=== PATIENT | male | born 1950 | race Caucasian/White ===

== ENCOUNTER 2020-11-02 12:04 | Outpatient (CLI) | payer MEDICARE, OTHER, SELFPAY ==
--- NOTE | ~2020-11-02 | XR_ITS ---
XR shoulder LT min 2V DATE: 11/02/2020 12:49 INDICATION: Left shoulder pain since dislocation 2 years ago TECHNIQUE: 3 views COMPARISON: 09/20/2018 left shoulder FINDINGS: There is a prominent Hill-Sachs deformity of the left humeral head secondary to prior dislo cation. Diffuse osteopenia. There is evidence of rotator cuff atrophy. No recent fracture or dislocation is detected. No periosteal reaction or bone destruction. Mild degenerative spurring at the acromioclavicular joint. 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 Osteopenia Reviewed, dictated and finalized at location B. 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 Osteopenia
[2020-11-02 12:39] LABS: Basophils Absolute Auto 0.09 K/mm3 (0.00-0.10); Basophils Percent Auto 0.7 % (0.0-1.0); Eosinophils Absolute Auto 0.26 K/mm3 (0.02-0.50); Hematocrit 42.8 % (37.0-46.0); Hemoglobin 13.7 g/dL (12.4-15.3); Immature Granulocyte Absolute 0.04 K/mm3 (0.00-0.00); Immature Granulocyte Percent A 0.3 % (0.0-0.0); Lymphocytes Absolute Auto 1.77 K/mm3 (1.10-4.50); Lymphocytes Percent Auto 13.7 % (18.0-42.0); Mean Corpuscular Hemoglobin 28.2 pg (27.0-31.0); Mean Corpuscular Volume 88.1 fL (78.0-102.0); Mean Platelet Volume 9.8 fl (8.7-11.0); Monocytes Absolute Auto 0.55 K/mm3 (0.10-0.90); Monocytes Percent Auto 4.3 % (2.0-11.0); Neutrophils Absolute Auto 10.2 K/mm3 (1.7-7.2); Platelet Count Result 330 K/mm3 (150-420); Red Blood Count 4.86 M/mm3 (4.70-6.10); Red Cell Distribution Width 13.9 % (11.6-14.4); White Blood Count 12.9 K/mm3 (4.8-10.8)
[2020-11-02 13:02] LABS: Hemoglobin A1C 6.8 % (<5.7)
[2020-11-02 13:18] LABS: Alanine Aminotransferase 17 U/L (16-63); Albumin Level 3.5 g/dL (3.4-5.0); Alkaline Phosphatase 108 U/L (46-116); Anion Gap 8 mmol/L (8-16); Aspartate Amino Transferase < 10 U/L (15-37); Bilirubin,Total 0.3 mg/dL (0.00-1.00); Blood Urea Nitrogen 18 mg/dL (7-18); Calcium 9.3 mg/dL (8.5-10.1); Carbon Dioxide 28 mmol/L (21-32); Chloride 103 mmol/L (98-108); Estimated Glomerular Filt Rate > 60; Glucose 155 mg/dL (70-99); Osmolality Calculated 292 mOsm/kg (285-295); Potassium 4.4 mmol/L (3.5-5.1); Sodium 139 mmol/L (136-145); Thyroid Stimulating Hormone 1.33 uIU/mL (0.36-3.74); Total Protein 7.7 g/dL (6.4-8.2)
[2020-11-09 13:09] LABS: Vitamin D 25 Hydroxy 10 ng/mL (30-100)
== END 2020-11-02 12:05 | disposition home or self-care (01) ==
LOC: CHSLAB 12:09
PROVIDERS: PCP Family Medicine; Visit Provider Family Medicine
DX: E11.9 Type 2 diabetes mellitus without complications (principal); E55.9 Vitamin D deficiency, unspecified; M25.512 Pain in left shoulder
CPT/HCPCS: 36415; 73030; 80053; 82306; 83036; 84443; 85025

== ENCOUNTER → 2021-06-13 03:58 | Outpatient (CLI) | payer MEDICARE, OTHER, SELFPAY ==
[2021-06-13 18:30] LABS: SARS-CoV-2 RNA PCR Negative
== END ==
PROVIDERS: PCP Family Medicine; Visit Provider Surgery
DX: Z01.812 Encounter for preprocedural laboratory examination (principal); Z20.822 Contact with and (suspected) exposure to COVID-19
CPT/HCPCS: C9803; U0003; U0005

== ENCOUNTER → 2021-06-18 02:49 | Outpatient (CLI) | payer MEDICARE, OTHER, SELFPAY ==
[2021-06-19 01:36] LABS: SARS-CoV-2 RNA PCR Negative
== END ==
PROVIDERS: PCP Family Medicine; Visit Provider Surgery
DX: Z01.812 Encounter for preprocedural laboratory examination (principal); Z20.822 Contact with and (suspected) exposure to COVID-19
CPT/HCPCS: C9803; U0003; U0005

== ENCOUNTER 2021-06-22 01:53 | Day surgery (SDC) | payer MEDICARE, OTHER, SELFPAY ==
[2021-06-08 13:14] VITALS: BMI 40.6
--- NOTE | 2021-06-16 09:36 | PC.NURSE ---
STATES NO CHANGE IN HEALTH HX SINCE LAST INTERVIEW ON 06/08/21
--- NOTE | 2021-06-21 13:33 | P.PNAN_ITS ---
Anes - Initial Pre Proc Eval Procedure: Operation Date: 06/22/21 13:30 Proposed Procedures p Excisional Biopsy Multiple Cutaneous Horns, Wide Local Excision Right Upper Extremities Skin Lesion Times Two - Dai Sarmiento MD s Pilonidal Cystectomy - Dai Sarmiento MD Date/Time: 06/21/21 13:33 Surgeon: Dai Sarmiento MD Pre Op Diagnosis: skin lesions rue, cutaneous horn, pilonidal cyst Patient Data Age: 71 Gender: M Height: 1.83 m Weight: 136.1 kg Allergies Allergy/AdvReac Type Severity Reaction Status Date / Time No Known Allergies Allergy Unverified 06/22/21 11:57 Home Medications Medication Instructions Recorded Confirmed Type albuterol sulfate 90 mcg/actuation 1 inh INHALATION Q4H PRN 05/30/21 06/22/21 History breath activated powder inhaler,sensor amlodipine 5 mg tablet 5 mg PO QPM 05/30/21 06/22/21 History aspirin 81 mg tablet,delayed 81 mg PO QPM 05/30/21 06/22/21 History release glipizide 5 mg tablet 5 mg PO BID 05/30/21 06/22/21 History losartan 50 mg-hydrochlorothiazide 1 tablet PO DAILY 05/30/21 06/22/21 History 12.5 mg tablet metformin 500 mg tablet 1,000 mg PO BID 05/30/21 06/22/21 History omeprazole magnesium 20 mg 20 mg PO DAILY 05/30/21 06/22/21 History tablet,delayed release vitamin A-vitamin C-vit E-min 1 tablet PO DAILY 06/08/21 06/22/21 History [Ocuvite] Patient hx anesthesia problems: none Family hx anesthesia problems: none [facility] Past Medical History Medical History (Updated 05/30/21 @ 15:38 by Shahnaz Dickerson) COPD (chronic obstructive pulmonary disease) Diabetes type 2, uncontrolled GERD (gastroesophageal reflux disease) High cholesterol History of coma HTN (hypertension) Hx of skin malignancy KSENIA (obstructive sleep apnea) Pilonidal cyst Surgical History Surgical History (Updated 05/30/21 @ 14:03 by Kylah Smith) History of esophagogastroduodenoscopy (EGD) Hx of aortic aneurysm repair Family History Family History (Updated 05/30/21 @ 14:05 by Kylah Smith) Father COPD (chronic obstructive pulmonary disease) Hyperlipidemia Acute myocardial infarction Mother Hyperlipidemia Sibling Diabetes mellitus Sibling COPD (chronic obstructive pulmonary disease) Hyperlipidemia Social History Social History (Updated 05/30/21 @ 14:05 by Kylah Smith) Smoking packs per day: 1 Smoking cigarettes per day: 20.0 Years smoked: 60 Smoking pack-years: 60.00 Smoking status: Current every day smoker Tobacco type: cigarettes Living arrangements: alone Spiritual care concerns: No Anes - Eval Final PreProcedure Day of Procedure 06/21/21 13:33 Patient weight: morbidly obese Heart: regular rate and rhythm Lungs: clear to auscultation and normal air movement Airway: Mallampati scale class III Neurological: alert and oriented Last oral intake: >/= 8 hours ASA classification: III Emergent: no Anesthetic plan: proceed Anesthesia type and monitoring: general ETT and standard monitoring Informed Consent: The patient's anesthetic plan and its attendant risks and benefits were discussed with the patient/family/POA. Questions were solicited and answers provided to the satisfaction of the patient/family/POA.
--- NOTE | 2021-06-22 10:56 | ECG_ITS ---
Measurements Intervals [place] Rate: 93 P: [place]: 0 QRS: -59 QRSD: 139 T: 76 QT: 374 QTc: 466 Interpretive Statements SINUS OR ECTOPIC ATRIAL RHYTHM ATRIAL PREMATURE COMPLEX LEFT AXIS DEVIATION RIGHT BUNDLE BRANCH BLOCK ABNORMAL ECG Electronically Signed On 06-22-2021 12:59:18 CDT by Ronan Funez D.O.
[2021-06-22 11:25] VITALS: BP 154/71; PULSE 89; RESP 14; TEMP 37.1; O2SAT 94
--- NOTE | 2021-06-22 11:50 | WPDHPUPDATE1 ---
History and Physical Update Update Date/Time: 06/22/21 11:50 History and Physical has been reviewed, including an updated exam of the patient. There are NO changes in the patient's condition. Risks, benefits, and alternatives have been discussed and questions answered. Patient agrees to proceed with procedure.
[2021-06-22] MEDS: LACTATED RINGERS 1,000 ML 30 ML IV CONT (12:20)
[2021-06-22 12:30] LABS: Glucose Point of Care 139 mg/dl (65-105)
[2021-06-22] MEDS: ceFAZolin 3 GM/D5W 100 ML 100 ML IVPB (13:39)
[2021-06-22 13:45] LABS: Anion Gap 7 mmol/L (8-16); Blood Urea Nitrogen 19 mg/dL (9-20); Calcium 8.9 mg/dL (8.4-10.2); Carbon Dioxide 29 mmol/L (22-30); Chloride 101 mmol/L (98-107); Estimated CRCL calculation 89 ml/min; Estimated Glomerular Filt Rate > 60; Glucose 144 mg/dL (65-110); Sodium 137 mmol/L (137-145)
[2021-06-22] MEDS: BUPIVACAINE/EPINEPHRINE 0.5% 30 ML VIAL INFILTRATE (14:30)
--- NOTE | 2021-06-22 14:34 | W.PM.PROC2 ---
Procedure Note - Detailed Date of Procedure 06/22/21 Pre-op Diagnosis skin lesions rue, cutaneous horn x 4, infected pilonidal cyst Post-op Diagnosis same Procedure Performed wide local excision RUE skin lesion, exc bx cutaneous horn x 4 (2 on each extremity), complex incision and drainage infected pilonidal cyst Surgeon Dai Sarmineto MD Anesthesia MAC and local Indications 71 y/o M presenting c RUE skin lesion x 1 yr. Pt reports lesion larger and darker c occ bleeding. Pt c h/o skin cancers. Pt also c cutaneous horn x 4, 2 on each extremity. Pt also c/o drainage, pain at area of pilonidal cyst. Findings infected pilonidal cyst Description of Procedure The patient was taken operating room placed in the lateral position. After adequate induction of MAC anesthesia, the patient was prepped and draped normal sterile fashion. A time-out was then done to verify the patient's identity, as well as the procedure being performed. I began by addressing the skin lesion in the right upper arm. There was 2 darkened areas that were irregular in shape and seemed to connect in the middle. I did a wide local excision after localizing the area. This was done by making elliptical incision to encompass the entire lesion. Once was completely around the lesion, I excised the dermis from the underlying subcutaneous tissue. This will now be sent to pathology for further review. The wide local excision measured 3-1/2 by 1-1/2 cm. I then gained hemostasis with the Bovie cautery. I then closed this excision with interrupted 3 0 nylon sutures in a vertical mattress fashion. Sterile dressing was then placed. I then excised the cutaneous horns by using a scalpel and excising these horns at the base. They were all sent to pathology for further review and there were 2 on each extremity. Once excised, I gained hemostasis with the Bovie cautery. Sterile dressing was then placed. Finally, there was noted to be a infected pilonidal cyst. The abscess was noted to be superior to the pilonidal tract. I used a scalpel to open up the abscess and a small amount of pus was noted. Bluntly dissecting to the base with a hemostat, I encountered some hair and this was removed. I then opened the pilonidal tract to connect with the abscess. I then washed out the wound. This area was then packed with quarter-inch iodoform. Sterile dressing was then placed. The patient tolerated these procedures well lb sent to the recovery room in stable condition.
[2021-06-22 14:46] VITALS: BP 140/69; PULSE 100; RESP 18; O2SAT 91
[2021-06-22 15:00] VITALS: BP 153/69; PULSE 103; O2SAT 88
[2021-06-22 15:00] LABS: Glucose Point of Care 154 mg/dl (65-105)
[2021-06-22 15:30] VITALS: BP 148/73; PULSE 94; O2SAT 91
[2021-06-22 16:00] VITALS: BP 134/62; PULSE 101
[2021-06-22 16:15] VITALS: BP 120/63; PULSE 102
--- NOTE | 2021-06-22 17:28 | SUR.PHASEII ---
Patient was argumentative and wouldn't follow any directions given by RN. When RN checked in patient with anesthesia after the procedure in outpatient, patient was sating 89% on RA. RN applied 2-3L NC. Patient sats came up 94%. Patient was noncompliant with using the incentive spirometer suggested by Dr. Collier and outpatient RN. Patient then wouldn't keep on the NC and his O2 kept dropping to 88% RA. Patient stated, I live 85-88%. This is normal for me. RN referred patient to primary doctor for further evaluation. Patient dropped to 87% RA. Dr. Collier aware especially on noncompliance. Patient stated, I will sign out AMA if I have to. I'm going home. Sister made aware of noncompliance and is a RN herself and assured RN this is his normal behavior. Anesthesia was made aware that patient was going home regardless of treatment.
--- NOTE | 2021-06-22 18:15 | SUR.PHASEII ---
RN spoke to patient's sister, Shirley, 3 times while patient was is in outpatient surgery.
== END 2021-06-22 16:34 | disposition home or self-care (01) ==
PROVIDERS: Anesthesiology; PCP Family Medicine; Visit Provider Surgery
PROC: (CPT 10081; principal; 2021-06-22 13:30)
PROC: (CPT 10081; 2021-06-22 13:30)
DX: D03.61 Melanoma in situ of right upper limb, including shoulder (principal); L57.0 Actinic keratosis; L05.01 Pilonidal cyst with abscess; L85.8 Other specified epidermal thickening; I10 Essential (primary) hypertension; E11.9 Type 2 diabetes mellitus without complications; K21.9 Gastro-esophageal reflux disease without esophagitis; Z85.828 Personal history of other malignant neoplasm of skin
CPT/HCPCS: 10081; 11604; 11401 ×2; 36415; 80048; 82948; 88305; 88342; 93005; A9270; J0690; J2250; J2405; J2704; J3010; J7120

== ENCOUNTER 2021-10-27 11:29 | Emergency (ER) | payer MEDICARE, OTHER, SELFPAY ==
[2021-10-27] VITALS (13 sets, daily range): BP systolic 92–133; BP diastolic 51–86; PULSE 126–128; RESP 20–24; TEMP 36.4–36.7; O2SAT 89–98
--- NOTE | ~2021-10-27 | CT_ITS ---
EXAMINATION: CT diagnostic chest wo con EXAM DATE: 10/27/2021 13:12 INDICATION: Hypoxia, SOB. TECHNIQUE: Spiral CT of the chest without contrast. Axial, coronal and sagittal images of the chest were reviewed. Coronal maximum intensity pixel images of chest reviewed. The dose-length product ( DLP) for this examination was 748.05 mGy-cm. The exposure was tailored according to patient size (au to mA exposure control), and iterative reconstruction (ASIR) was used as additional dose reduction [place]. There is no prior study for comparison. FINDINGS: There is cardiomegaly. Small to moderate right, small left pleural effusions. There is mode rate amount of right lung ill-defined airspace disease, small amount of left lower lobe ill-defined a irspace disease, probably acute pneumonia or less likely edema given the asymmetry. There is right lo wer lobe segmental amount of atelectasis. Small pericardial effusion. Mild to moderate coronary arter y calcifications. Ill-defined left upper lobe spiculation, difficult to measure but could be up to 8-10 mm; 3 month fol low-up chest CT recommended for this indeterminate finding. There is mediastinal lymphadenopathy, a p recarinal lymph node measuring 1.6 x 2.0 cm. Probably reactive. No pneumothorax. Exophytic left renal 3.5 cm lesion consistent with cyst. Old left rib fractures. IMPRESSION: 1. Moderate right-sided, small left lower lobe airspace disease. Pneumonia or less likely edema. Cli nical correlation. 2. Indeterminate left upper lobe spiculated opacity; 3 month follow-up chest CT without contrast. 3. Cardiomegaly, small to moderate right, small left pleural effusions. Small pericardial effusion. 4. Lymphadenopathy probably reactive. Reviewed, dictated and finalized at location A. COAT WIPER IMPRESSION: 1. Moderate right-sided, small left lower lobe airspace disease. Pneumonia or less likely edema. Clinical correlation. 2. Indeterminate left upper lobe spiculated opacity; 3 month follow-up chest C T without contrast. 3. Cardiomegaly, small to moderate right, small left pleural effusions. Small pericardial effusion. 4. Lymphadenopathy probably reactive.
--- NOTE | 2021-10-27 11:51 | ECG_ITS ---
Measurements Intervals [place] Rate: 128 P: 264 MN: 162 QRS: -62 QRSD: 121 T: 154 QT: 213 QTc: 311 Interpretive Statements ATRIAL FLUTTER/TACHYCARDIA WITH RAPID VENTRICULAR RESPONSE LEFT AXIS DEVIATION INTRAVENTRICULAR CONDUCTION DELAY ST-T WAVE ABNORMALITY IN ANTEROLAT/HIGH LAT LEADS- CONSIDER ISCHEMIA BASELINE ARTIFACT- I, II, AVR, V1, V4 ABNORMAL ECG Electronically Signed On 10-27-2021 12:39:25 [employer] by Ronan Funez D.O.
[2021-10-27] MEDS: FUROSEMIDE INJ 100 MG/10 ML VIAL 80 MG IV PUSH (12:16)
[2021-10-27 12:37] LABS: Basophils Absolute Auto 0.08 K/mm3 (0.00-0.10); Basophils Percent Auto 0.7 % (0.0-1.0); Eosinophils Absolute Auto 0.22 K/mm3 (0.02-0.50); Eosinophils Percent Auto 1.9 % (1.0-6.0); Hematocrit 42.4 % (37.0-46.0); Hemoglobin 12.3 g/dL (12.4-15.3); Immature Granulocyte Absolute 0.09 K/mm3 (0.00-0.00); Immature Granulocyte Percent A 0.8 % (0.0-0.0); Lymphocytes Percent Auto 14.5 % (18.0-42.0); Mean Corpuscular Hemoglobin 27.6 pg (27.0-31.0); Mean Corpuscular Volume 95.3 fL (78.0-102.0); Mean Platelet Volume 9.1 fl (8.7-11.0); Monocytes Absolute Auto 0.61 K/mm3 (0.10-0.90); Monocytes Percent Auto 5.2 % (2.0-11.0); Neutrophils Percent Auto 76.9 % (50.0-70.0); Platelet Count Result 434 K/mm3 (150-420); Red Blood Count 4.45 M/mm3 (4.70-6.10); Red Cell Distribution Width 15.8 % (11.6-14.4); White Blood Count 11.7 K/mm3 (4.8-10.8)
--- NOTE | 2021-10-27 12:41 | PC.NURSE ---
patient refused his covid test it is against my constitutional rights and blood gas. patient also took out the battery to his life vest and disconnected machine. erp is made aware of patient decisions.
[2021-10-27 12:55] LABS: Alanine Aminotransferase 40 U/L (16-63); Alkaline Phosphatase 146 U/L (46-116); Anion Gap 8 mmol/L (8-16); Aspartate Amino Transferase 15 U/L (15-37); Bilirubin,Total 0.3 mg/dL (0.00-1.00); Blood Urea Nitrogen 29 mg/dL (7-18); Calcium 8.7 mg/dL (8.5-10.1); Carbon Dioxide 29 mmol/L (21-32); Chloride 110 mmol/L (98-108); Estimated Glomerular Filt Rate 58; Glucose 161 mg/dL (70-99); Osmolality Calculated 312 mOsm/kg (285-295); Potassium 4.3 mmol/L (3.5-5.1); Sodium 147 mmol/L (136-145); Total Protein 7.2 g/dL (6.4-8.2)
[2021-10-27 13:03] LABS: Troponin I 242.2 ng/L (0.00-60.4)
[2021-10-27 13:49] LABS: Base Excess ABG -4.9 mmol/L (0-2); HCO3 ABG 23.4 mmol/L (23-29); Oxygen Content ABG 17.7 %vol (16.0-22.0); Oxygen Saturation ABG 95.5 % (95-97); Oxyhemoglobin 93.4 % (94-100); PCO2 ABG 57.1 mmHg (35-45); PO2 ABG 92.2 mmHg (75-85); Total Hemoglobin 13.4 g/dL (12.0-18.0); pH ABG 7.23 (7.35-7.45)
[2021-10-27 13:50] LABS: Device SIMPLE MASK; Modified Allen's Test Pass; Site Drawn RIGHT RADIAL
[2021-10-27] MEDS: ALBUTEROL SULFATE (*SP) INHALER 4 PUFF INHALATION (13:50)
[2021-10-27] MEDS: METOPROLOL TARTRATE INJ 5 MG/5 ML VIAL 2.5 MG IV PUSH ×2 (14:03→15:37)
[2021-10-27] MEDS: methylPREDNISolone SOD SUCC 125 MG VIAL IV PUSH (14:06)
--- NOTE | 2021-10-27 14:12 | PC.NURSE ---
patient's life vest taken off per patient request and patient placed on zoll monitor.
--- NOTE | 2021-10-27 14:14 | ECG_ITS ---
Measurements Intervals [place] Rate: 127 P: [place]: 0 QRS: -65 QRSD: 105 T: 145 QT: 261 QTc: 380 Interpretive Statements ATRIAL FLUTTER/TACHYCARDIA WITH RAPID VENTRICULAR RESPONSE INCOMPLETE RIGHT BUNDLE BRANCH BLOCK ST-T WAVE ABNORMALITY IN ANTEROLAT/HIGH LAT LEADS- CONSIDER ISCHEMIA BASELINE ARTIFACT- I, II, III, AVR, V1-V6 ABNORMAL ECG Electronically Signed On 10-27-2021 15:46:18 [employer] by Ronan Funez D.O.
--- NOTE | 2021-10-27 14:17 | PC.NURSE ---
PATIENT BACK IN ROOM FROM CT. PATIENT PLACED BACK ON MONITOR AND RN NOTICED DYSRTHYMIA. ERP MADE AWARE AND EKG PERFORMED. SHORT STENT OF VTACH REPORTED AND PATIENT MOVED TO ROOM 7.
[2021-10-27 14:26] LABS: Troponin I 233.5 ng/L (0.00-60.4)
[2021-10-27] MEDS: SODIUM CHLORIDE 0.45% 1,000 ML 500 ML IV CONT (14:58)
[2021-10-27] MEDS: ASPIRIN 325 MG ENTERIC TABLET PO (15:36)
[2021-10-27] MEDS: UMECLIDINIUM BROMIDE 62.5 MCG ELLIPTA 1 PUFF INHALATION (16:03)
--- NOTE | 2021-10-27 18:21 | ED.SOB ---
HPI - SOB/Dyspnea General Chief Complaint: Shortness of Breath/Dyspnea Stated Complaint: ambulance Time Seen by Provider: 10/27/21 11:34 Source: patient, EMS, RN notes reviewed and old records reviewed Mode of arrival: EMS Limitations: no limitations History of Present Illness MD elicited complaint: shortness of breath and chest pain Pertinent past history: COPD Severity: moderate Exacerbating factors: nothing Relieving factors: nothing Known history of: COPD Associated symptoms: chest pain and other (leg swelling) Treatment prior to arrival: none Related Data Home Medications Medication Instructions Recorded Confirmed albuterol sulfate 90 mcg/actuation 1 inh INHALATION Q4H PRN 05/30/21 10/27/21 breath activated powder inhaler,sensor aspirin 81 mg tablet,delayed 81 mg PO QPM 05/30/21 10/27/21 release glipizide 5 mg tablet 5 mg PO BID 05/30/21 10/27/21 losartan 50 mg-hydrochlorothiazide 1 tablet PO DAILY 05/30/21 10/27/21 12.5 mg tablet metformin 500 mg tablet 1,000 mg PO BID 05/30/21 10/27/21 omeprazole magnesium 20 mg 20 mg PO DAILY 05/30/21 10/27/21 tablet,delayed release vitamin A-vitamin C-vit E-min 1 tablet PO DAILY 06/08/21 10/27/21 apixaban [Eliquis] 5 mg PO DAILY 10/27/21 10/27/21 atorvastatin 40 mg PO DAILY 10/27/21 10/27/21 prednisone 10 mg PO DAILY 10/27/21 10/27/21 Allergies Allergy/AdvReac Type Severity Reaction Status Date / Time No Known Allergies Allergy Verified 10/27/21 11:56 Review of Systems Review of Systems: All systems reviewed & are unremarkable except as noted in HPI and below PMFSH Past Medical History Medical History COPD (chronic obstructive pulmonary disease) Diabetes type 2, uncontrolled GERD (gastroesophageal reflux disease) High cholesterol History of coma HTN (hypertension) Hx of skin malignancy KSENIA (obstructive sleep apnea) Pilonidal cyst Surgical History Surgical History H/O excision of mass 06/22/21 wide local excision RUE skin lesion, exc bx cutaneous horn x 4 (2 on each extremity), complex incision and drainage infected pilonidal cyst History of esophagogastroduodenoscopy (EGD) Hx of aortic aneurysm repair Family History Family History Father COPD (chronic obstructive pulmonary disease) Hyperlipidemia Acute myocardial infarction Mother Hyperlipidemia Sibling Diabetes mellitus Sibling COPD (chronic obstructive pulmonary disease) Hyperlipidemia Social History Social History Smoking packs per day: 1 Smoking cigarettes per day: 20.0 Years smoked: 60 Smoking pack-years: 60.00 Smoking status: Current every day smoker Tobacco type: cigarettes Spiritual care concerns: No Exam Const: General: no acute distress, alert and ill appearing Orientation/consciousness: patient oriented x3 Limitations: no limitations HENMT: Head: normal to inspection Ears: external ears normal and TM's normal bilaterally Eyes: Conjunctivae: conjunctivae normal Pupils: Equal, round and reactive pupils present EOM: EOMs intact bilaterally Neck: Neck: normal visual inspection Chest: Chest palpation & inspection: normal inspection of the chest Resp: Effort & Inspection: labored, tachypneic and uses accessory muscles Auscultation: crackles, rales, rhonchi and wheezes Cardio: Rate: regular rate Rhythm: regular rhythm GI: GI Palp: Yes Soft to palpation and No Tenderness to palpation present (GI) : General: Yes bladder normal to palpation and Yes no CVA tenderness Male General Exam: Yes normal external exam Back/Spine/Pelvis: Back: no CVA tenderness Skin: General skin exam: normal color Rashes: no rashes Neuro: General: patient oriented x3, moves all extremities, no meningeal signs, no focal motor deficits and CN's II
[2021-10-27] MEDS: dilTIAZem HCl INJ 25 MG/5 ML VIAL 20 MG IV PUSH (18:33)
[2021-10-27] MEDS: dilTIAZem 100 MG/100 ML 100 MG/100 ML BAG IV CONT (18:36)
[2021-10-27 18:42] LABS: Influenza A QL RT-PCR Negative (Negative); Influenza B QL RT-PCR Negative (Negative); SARS-CoV-2 RNA PCR Negative (Negative)
--- NOTE | 2021-10-27 19:25 | PC.NURSE ---
Took pt report on Pt at this timefrom Padmini GODOY. Pt resting comfortable on stretcher. Awaiting CB on bed form [facility]. 0 c/o pain or discomfort. Pt cont ST on the monitor 127. Life vest off defibulator and pads on in place. Pt pleasent easily and approachable. Pt requesting a meal.
--- NOTE | 2021-10-27 19:47 | PC.NURSE ---
[facility]. Amadeo fu ate 100%.
--- NOTE | 2021-10-27 22:06 | PC.NURSE ---
Sharee from [facility] called back with bed at this time.
--- NOTE | 2021-10-27 22:23 | PC.NURSE ---
Pt report called to [facility] Fartun GODOY. Teri YU called also at this time for trans to [facility].
== END 2021-10-27 22:57 | disposition short-term general hospital (02) ==
PROVIDERS: Emergency Provider Emergency Medicine; PCP Family Medicine
DX: I21.4 Non-ST elevation (NSTEMI) myocardial infarction (principal); J44.1 Chronic obstructive pulmonary disease with (acute) exacerbation; Z20.822 Contact with and (suspected) exposure to COVID-19; E11.9 Type 2 diabetes mellitus without complications; K21.9 Gastro-esophageal reflux disease without esophagitis; I10 Essential (primary) hypertension; F17.200 Nicotine dependence, unspecified, uncomplicated
CPT/HCPCS: 36415; 36600; 71250; 80053; 82805; 83605; 84484; 85025; 87502; 93005; 94640; 96361; 96365; 96366; 96375; 96376; 99285; A9270; C9803; J1940; J2930; U0003; U0005